=== PATIENT | male | born 1965 ===

== ENCOUNTER 2024-02-25 08:00 | Outpatient (CLI) | payer MEDICARE, MEDICAID, SELFPAY | END 2024-02-25 08:01 | disposition home or self-care (01) | LOC: ANHLAB 08:04 | PROVIDERS: PCP Family Medicine; Visit Provider Internal Medicine | DX: E87.1 Hypo-osmolality and hyponatremia (principal) | CPT/HCPCS: 36415; 82533; 96372 ==